=== PATIENT | female | born 1975 | race Caucasian/White ===

== ENCOUNTER → 2017-12-18 12:10 | Outpatient (CLI) | payer OTHER, SELFPAY ==
--- NOTE | 2017-12-18 | DI.RAD.S_ITS ---
PROCEDURE: XR SHOULDER RT MIN 2V INDICATIONS: RIGHT SHOULDER PAIN TECHNIQUE: 3 views of the shoulder were acquired. COMPARISON: None. FINDINGS: Bones: No fractures or dislocations. Focal dense sclerosis involving the glenoid, and proximal humerus, No suspicious bony lesions. Visualized ribs appear intact. Anatomic alignment Soft tissues: No suspicious soft tissue calcifications. IMPRESSION: Dense sclerosis projecting in the region of the glenohumeral joint and proximal humeral head, possibly multiple loose bodies although technically indeterminate. Calcific tendinitis and/or bursitis in the differential. Please correlate clinically and if needed, further evaluation with cross-sectional imaging could be performed. Dictated by: Hans Ge M.D. on 12/18/2017 at 14:54 Approved by: Hans Ge M.D. on 12/18/2017 at 14:57
== END ==
PROVIDERS: Visit Provider Family Medicine
DX: M25.511 Pain in right shoulder (principal)
CPT/HCPCS: 73030

== ENCOUNTER → 2019-01-11 07:52 | Outpatient (CLI) | payer OTHER, SELFPAY ==
--- NOTE | 2019-01-11 07:53 | DI.US.S_ITS ---
PROCEDURE: US PELVIC COMPLETE INDICATIONS: EXERCISE INDUCED VAGINAL BLEEDING X 19 YEARS TECHNIQUE: Real-time scanning was performed of the pelvic organs, with image documentation. Additional endovaginal scanning was necessary due to incomplete visualization of the adnexal and endometrial structures by transabdominal scanning. COMPARISON: None. FINDINGS: Transabdominal scanning: Limited scanning through the kidneys shows no hydronephrosis. No pathologic free abdominal or pelvic fluid. Endovaginal scanning: Uterus: Uterus is normal in size at 5.4 x 7.3 x 10.0 cm. The endometrium measures 16.5 mm in combined thickness (mildly hyperplastic).. Ovaries: Normal on the right measuring 1.6 x 1.9 x 2.8 cm and also normal on the left measuring 1.9 x 3.0 x 2.1 cm. IMPRESSION: Mild endometrial hyperplasia with the combined endometrial lining thickness measuring up to 16.5 mm. No endometrial mass or abnormal fluid collection is found, normal appearing ovaries. Dictated by: Rex Mojica M.D. on 01/11/2019 at 11:01 Approved by: Rex Mojica M.D. on 01/11/2019 at 11:03
== END ==
PROVIDERS: Visit Provider Nurse Practitioner
DX: N93.9 Abnormal uterine and vaginal bleeding, unspecified (principal); N85.00 Endometrial hyperplasia, unspecified
CPT/HCPCS: 76830; 76856

== ENCOUNTER → 2019-01-18 11:46 | Outpatient (CLI) | payer OTHER, SELFPAY ==
[2019-01-18 12:21] LABS: Add Manual Diff / Slide Review NO; Basophils Absolute Auto 0 /uL (0-100); Basophils Percent Auto 0.7 % (0-2); Eosinophils Absolute Auto 100 /uL (0-450); Eosinophils Percent Auto 1.9 % (2-4); Hematocrit 38.9 % (36-46); Hemoglobin 13.3 g/dL (12.0-16.0); Lymphocytes Absolute Auto 1300 /uL (1100-4500); Lymphocytes Percent Auto 19.6 % (25-40); Mean Corpuscular HGB Conc 34.1 % (30-36); Mean Corpuscular Volume 90.8 fL (80-100); Monocytes Absolute Auto 700 /uL (0-900); Neutrophils Absolute Auto 4500 /uL (1500-7000); Neutrophils Percent Auto 66.8 % (50-75); Platelet Count 374 X10^3/uL (150-400); Red Blood Cell Count 4.29 X10^6/uL (4.0-5.2); Red Cell Distribution Width 13.3 % (11.6-14.8); White Blood Cell Count 6.7 X10^3/uL (4.5-11.0)
[2019-01-18 13:50] LABS: Alanine Aminotransferase 17 IU/L (<35); Albumin 4.4 g/dL (3.5-5.0); Albumin Globulin Ratio 1.5 (1.0-2.8); Alkaline Phosphatase 22 U/L (38-126); Aspartate Aminotransferase 26 IU/L (14-36); BUN Creatinine Ratio 18.6 (6-22); Blood Urea Nitrogen 13 mg/dL (7-17); Calcium 9.7 mg/dL (8.4-10.2); Carbon Dioxide 27 mmol/L (22-32); Chloride 104 mmol/L (98-107); Cholesterol 183 mg/dL (140-199); Estimated Glomerular Filt Rate > 60.0 mL/min (>60); Glucose 75 mg/dL (70-100); HDL Cholesterol 42 mg/dL (40-60); HEMOLYSIS < 15 (0-50); LDL Cholesterol Calculated 124 mg/dL (<100); Sodium 140 mmol/L (137-145); Total Protein 7.4 g/dL (6.3-8.2); Triglycerides 83 mg/dL (35-150)
[2019-01-18 14:02] LABS: Free T3, Triiodothyronine Free 3.21 pg/mL (2.77-5.27); Free T4, Direct Thyroxine 1.17 ng/dL (0.78-2.19)
[2019-01-18 14:15] LABS: Thyroid Stimulating Hormone 2.78 uIU/mL (0.47-4.68)
== END ==
PROVIDERS: PCP Nurse Practitioner; Visit Provider Nurse Practitioner
DX: Z00.00 Encounter for general adult medical examination without abnormal findings (principal); N93.9 Abnormal uterine and vaginal bleeding, unspecified
CPT/HCPCS: 36415; 80053; 80061; 84439; 84443; 84481; 85025

== ENCOUNTER 2020-11-10 19:34 | Emergency (ER) | payer OTHER, SELFPAY ==
[2020-11-10 19:40] VITALS: BP 134/82; PULSE 95; RESP 22; TEMP 37.1; O2SAT 96
[2020-11-10 20:25] LABS: COVID19 -Nasal RAPID POSITIVE (Negative)
--- NOTE | 2020-11-10 20:37 | DI.RAD.S_ITS ---
PROCEDURE: XR CHEST 1V INDICATIONS: covid infection TECHNIQUE: One view of the chest was acquired. COMPARISON: None. FINDINGS: Surgical changes and devices: None. Lungs and pleura: Lungs are clear. No pleural effusions or pneumothorax. Mediastinum: Mediastinal contours appear normal. Heart size is normal. Bones and chest wall: No suspicious bony lesions. Overlying soft tissues appear unremarkable. IMPRESSION: No focal infiltrate, pleural effusion or pneumothorax. Dictated by: Julian Rivas M.D. on 11/10/2020 at 20:51 Approved by: Julian Rivas M.D. on 11/10/2020 at 20:51
--- NOTE | 2020-11-10 21:21 | ED_ITS ---
HPI - URI/Sore Throat General Chief Complaint: Upper Respiratory Symptoms Stated Complaint: covid concerns Time Seen by Provider: 11/10/20 20:37 Source: patient Mode of arrival: Ambulatory Limitations: no limitations History of Present Illness HPI Narrative: This is a 45-year-old who comes with complaint of fatigue, generally feeling unwell and cough. Patient states she has had symptoms kind of intermittently. They have been very persistent. She denies any chest pain or shortness of breath. No vomiting. No diarrhea. She states she is otherwise healthy. She had a significant intra-abdominal infection after a perforated appendicitis about 5 years ago and had surgery and washout for this. She denies any other issues. No allergies to medications. No tobacco use. Related Data Home Medications Medication Instructions Recorded Confirmed No Known Home Medications 01/25/19 03/22/19 Allergies Allergy/AdvReac Type Severity Reaction Status Date / Time No Known Drug Allergies Allergy Unverified 03/22/19 09:19 Review of Systems Review of Systems ROS Unobtainable: All systems reviewed & are unremarkable except as noted in HPI and below Patient History Medical History Cat scratch Vaginal delivery Surgical History Anesthesia History of abdominal surgery (~2005) History of appendectomy (~2005) History of tonsillectomy (~1999) Social History Smoking Status: Never smoker Smoking Status: Never smoker Exam Narrative Exam Narrative: GENERAL: Alert and oriented x three, female in mild distress. HEENT: Head normocephalic, atraumatic, EOMI, pupils reactive, face symmetric, moist mucous membranes NECK: Supple, full range of motion CARDIOVASCULAR: Regular rate and rhythm without murmurs, rubs or gallops. RESPIRATORY: Breath sounds equal bilaterally, no wheezes rales or rhonchi. No tachypnea. No accessory muscle use. ABDOMEN: Soft, nontender. Normoactive bowel sounds all 4 quadrants. No guarding or rebound, rigidity, no mass : No CVA tenderness EXTREMITIES: Normal range of motion, no clubbing or edema. Neurovascularly intact NEUROLOGICAL: Cranial nerves II through XII grossly intact. Moving all extremities SKIN: Warm, dry, no petechiae, no rashes or lesions. Initial Vital Signs Initial Vital Signs: Vital Signs Temperature 98.7 F 11/10/20 19:40 Pulse Rate 95 H 11/10/20 19:40 Respiratory Rate 22 11/10/20 19:40 Blood Pressure 134/82 11/10/20 19:40 Pulse Oximetry 96 11/10/20 19:40 Course Orders Ordered: ED Orders 11/10/20 20:10 COVID19 -Nasal swab/Pre-Proc Stat 11/10/20 20:37 XR chest 1V Stat Vital Signs Vital signs: Vital Signs - 8 hr 11/10/20 19:40 Temperature 98.7 F Pulse Rate 95 H Respiratory Rate 22 Blood Pressure 134/82 Pulse Oximetry 96 MDM - URI/Sore Throat Lab Data Labs: Lab Results 11/10/20 Range/Units 20:10 SARS-CoV-2 (PCR) Positive H (Negative) Imaging Data Chest x-ray: Radiologist's Impression: [address] [address] XRay Report Signed Patient: Paige Man MR#: [id number] : 1975 Acct:[id number] Age/Sex: 45 / F Date of Service: 11/10/20 Loc: ED Accession Number: [id number] ?? Procedure: XR chest 1V Ordering Provider: Aylin Bonilla D.O. PROCEDURE:? XR CHEST 1V ? INDICATIONS:? covid infection ? TECHNIQUE:? One view of the chest was acquired.? ? COMPARISON:? None. ? FINDINGS:? ? Surgical changes and devices:? None.? ? Lungs and pleura:? Lungs are clear.? No pleural effusions or pneumothorax.? ? Mediastinum:? Mediastinal contours appear normal.? Heart size is normal.? ? Bones and chest wall:? No suspicious bony lesions.? Overlying soft tissues appear unremarkable.? ? IMPRESSION:? No focal infiltrate, pleural effusion or pneumothorax. ? ? Dictated by: Julian Rivas M.D. on 11/10/2020 at 20:51 ? ? Approved by: Julian Rivas M.D. on 11/10/2020 at 20:51?? MDM Narrative Medical decision making narrative: 45-year-old female who has known COVID exposure with her spouse who has begun to have symptoms. She denies any chest pain or shortness of breath. She has a negative chest x-ray with reassuring vitals and no other significant risk factors. Discharge Plan Departure Patient Disposition: Home Clinical Impression: COVID-19 virus infection Instructions: DI for COVID-19 (Suspected or Confirmed ) Activity Restrictions/Additional Instructions: *You have been diagnosed with coronavirus infection. Your x-ray imaging today does not show any pneumonia. If you wish you may obtain a pulse oximeter for use at home to monitor. Please return to the ER if your pulse oximeter shows an O2 saturation less than 94%. *What to do: * per recommendations from the CDC and the [facility] Department of Health * stay home except to get medical care. Restrict activities outside your home, except for getting medical care. Do not go to work, school, or public areas. Avoid using public transportation, ride sharing, or taxis. * separate yourself from other people in your home. * call ahead before visiting your doctor * Wear a face mask * Cover your coughs and sneezes * Clean your hands often * Avoid sharing household items * Clean all high-touch services every day * Monitor your symptoms and seek prompt medical attention if your illness is worsening, particularly with difficulty in breathing. Discussed continuing home isolation * for individuals with symptoms who are confirmed or suspected cases of COVID-19 and are directed to care for themselves at home, discontinue home isolation under the following conditions: 1. At least 72 hours have passed since recovery, defined as resolution of fever without the use of fever reducing medications, and improvement in respiratory symptoms (cough, shortness of breath) AND, 2. At least 7 days have passed since symptoms 1st appeared Individuals with laboratory confirmed COVID-19 who have not had any symptoms may discontinue home isolation when at least 7 days have passed since the date of their 1st COVID-19 diagnostic test and have had no subsequent illness Prescriptions: No Action No Known Home Medications RF: 0 Referrals: Klever Ugalde MD [Primary Care Provider] -
== END 2020-11-10 22:05 | disposition home or self-care (01) ==
PROVIDERS: Emergency Provider Emergency Medicine; PCP Student in an Organized Health Care Education/Training Program
DX: U07.1 COVID-19 (principal)
CPT/HCPCS: 71045; 87635; 99283; C9803